=== PATIENT | male | born 1970 | race Caucasian/White ===

== ENCOUNTER 2017-08-12 12:16 | Emergency (ER) | payer BC ==
[2017-08-12 12:55] VITALS: BP 121/67
--- NOTE | 2017-08-12 13:07 | UC ---
Hand/Wrist HPI - HPI Summary HPI Summary: 46 yo male slipped and fell on ice this AM c/o right wrist pain and swelling he is right handed - History Of Current Complaint Chief Complaint: UCUpperExtremity Stated Complaint: WRIST Time Seen by Provider: 08/12/17 12:56 Hx Obtained From: Patient Onset/Duration: Sudden Onset Severity Initially: Severe Severity Currently: Moderate Pain Intensity: 5 - declines analgic at present Pain Scale Used: 0-10 Numeric Character Of Pain: Sharp, Aching Aggravating Factor(s): Movement Alleviating Factor(s): Rest, Ice Associated Signs And Symptoms: Positive: Swelling, Numbness/Tingling - initially had numbness and tingling thumb index and middle finger-lasted 20 minutes Related History: Dominant Hand Right - Allergies/Home Medications Allergies/Adverse Reactions: Allergies Allergy/AdvReac Type Severity Reaction Status Date / Time Aspirin Allergy See Comment Verified 08/12/17 12:55 Home Medications: Home Medications NK [No Home Medications Reported] 08/12/17 [History Confirmed 08/12/17] PMH/Surg Hx/FS Hx/Imm Hx Previously Healthy: Yes - Surgical History Surgical History: Yes Surgery Procedure, Year, and Place: APPENDIX-1972 - Family History Known Family History: Negative: Cardiac Disease, Hypertension, Diabetes - Social History Alcohol Use: Occasionally Substance Use Type: None Smoking Status (MU): Never Smoked Tobacco - Immunization History Most Recent Influenza Vaccination: NOT UTD Review of Systems Constitutional: Negative Skin: Negative Eyes: Negative ENT: Negative Respiratory: Negative Cardiovascular: Negative Gastrointestinal: Negative Genitourinary: Negative Motor: Negative Neurovascular: Negative Musculoskeletal: Arthralgia Neurological: Negative Psychological: Negative Is Patient Immunocompromised?: No All Other Systems Reviewed And Are Negative: Yes Physical Exam Triage Information Reviewed: Yes Appearance: Well-Appearing, No Pain Distress, Well-Nourished Vital Signs: Initial Vital Signs Temp 97.6 F 08/12/17 12:52 Pulse 67 08/12/17 12:52 Resp 14 08/12/17 12:52 BP 121/67 08/12/17 12:52 Pulse Ox 98 08/12/17 12:52 Eyes: Positive: Conjunctiva Clear ENT: Positive: Hearing grossly normal. Negative: Nasal congestion, Nasal drainage, Trismus, Muffled voice, Hoarse voice Neck: Positive: Supple Respiratory: Positive: Lungs clear, Normal breath sounds, No respiratory distress, No accessory muscle use Cardiovascular: Positive: RRR, No Murmur Musculoskeletal: Positive: Edema @ - tender and swollen over distal radius/ snuff box tenderness/limited ROM, good cap refill, ulna not tender RIGHT WRIST Psychological Exam: Normal Skin Exam: Normal Diagnostics - Radiology No standard instances Xray Interpretation: No Acute Changes Radiology Interpretation Completed By: Radiologist Hand/Wrist Course/Dx - Differential Dx/Diagnosis Provider Diagnoses: right wrist injury. high index of suspicion for a navicular fracture Discharge - Discharge Plan Condition: Stable Disposition: HOME Patient Education Materials: Scaphoid Fracture (ED) Referrals: Rogelio Ackerman MD [Medical Doctor] - As Soon As Possible Additional Instructions: no fracture was noted but I have a high index of suspicion that you have an occult scaphoid fracture this needs to be followed up to help avoid complications of non union / of part of the bone thumb spica splint tylenol or advil for pain
--- NOTE | 2017-08-12 14:20 | RAD ---
INDICATION: Right wrist pain after a fall COMPARISON: None. TECHNIQUE: 3 views right wrist. REPORT: The visualized bones are properly aligned and well corticated. The joint spaces are normal.There is no fracture, dislocation or other focal osseous abnormality. Incidentally noted is a linear hyperdense structure measuring 5 mm in length overlying the superficial soft tissues distal to the thenar eminence.. IMPRESSION: 1. No radiographically apparent fracture or dislocation involving the right wrist. 2. Subcutaneous foreign body overlying the thenar eminence. Please correlate to physical examination and/or surgical history. If the patient's symptoms persist, follow-up imaging is recommended.
== END 2017-08-12 14:32 | disposition home or self-care (01) ==
LOC: UCEAST 12:16
DX: S69.91XA Unspecified injury of right wrist, hand and finger(s), initial encounter (principal); S60.851A Superficial foreign body of right wrist, initial encounter; W00.0XXA Fall on same level due to ice and snow, initial encounter; Y92.9 Unspecified place or not applicable; Z88.6 Allergy status to analgesic agent
CPT/HCPCS: 99212; G0463

== ENCOUNTER 2018-05-02 09:45 | Emergency (ER) | payer BC ==
[2018-05-02 10:16] VITALS: BP 130/84
--- NOTE | 2018-05-02 10:49 | RAD ---
Indication: Stepped on foreign body with LEFT great toe 2 months ago. Swelling lateral dorsal aspect. Comparison: No relevant prior exams available on the [facility] for comparison. Technique: AP, lateral, and oblique views LEFT great toe. Report: Fusiform soft tissue swelling. No subcutaneous emphysema or conspicuous foreign body. Negative for fracture or malalignment. Negative for periosteal reaction, osteolysis, or osteosclerosis. IMPRESSION: #. No foreign body evident. #. Nonspecific soft tissue swelling.
--- NOTE | 2018-05-02 11:01 | UC ---
Skin Complaint HPI - HPI Summary HPI Summary: PATIENT CONCERNED HE HAS A THORN STUCK IN HIS LEFT GREAT TOE. HAS HAD PAIN FOR ABOUT 2 MONTHS. CANNOT WALK BAREFOOT DUE TO THE DISCOMFORT. NO REDNESS OR DRAINAGE OR FEVER. - History of Current Complaint Chief Complaint: UCLowerExtremity Time Seen by Provider: 05/02/18 10:11 Stated Complaint: PUNCTURE WOUND Hx Obtained From: Patient Onset/Duration: Gradual Onset, Lasting Weeks, Still Present Timing: Constant Onset Severity: Moderate Current Severity: Moderate Pain Intensity: 1 Pain Scale Used: 0-10 Numeric Location: Discrete - LEFT GREAT TOE Character: Pain, Raised Aggravating Factor(s): Touch Associated Signs & Symptoms: Positive: Tenderness - Allergy/Home Medications Allergies/Adverse Reactions: Allergies Allergy/AdvReac Type Severity Reaction Status Date / Time aspirin Allergy Unknown Verified 05/02/18 10:11 Reaction Details Review of Systems Constitutional: Negative Skin: Other - TENDER BUMP LEFT GREAT TOE Respiratory: Negative Cardiovascular: Negative Gastrointestinal: Negative All Other Systems Reviewed And Are Negative: Yes PMH/Surg Hx/FS Hx/Imm Hx Previously Healthy: Yes - Surgical History Surgical History: Yes Surgery Procedure, Year, and Place: APPENDIX-1972. R arm -repair of detached bicep -2018 - Family History Known Family History: Negative: Cardiac Disease, Hypertension, Diabetes - Social History Alcohol Use: None Substance Use Type: None Smoking Status (MU): Never Smoked Tobacco - Immunization History Most Recent Influenza Vaccination: NOT UTD Physical Exam Triage Information Reviewed: Yes Appearance: Well-Appearing, No Pain Distress, Well-Nourished Vital Signs: Initial Vital Signs Temp 98.2 F 05/02/18 10:12 Pulse 64 05/02/18 10:12 Resp 16 05/02/18 10:12 BP 130/84 05/02/18 10:12 Pulse Ox 96 05/02/18 10:12 Vital Signs Reviewed: Yes Eyes: Positive: Conjunctiva Clear ENT: Positive: Hearing grossly normal Neck: Positive: Supple Respiratory: Positive: No respiratory distress, No accessory muscle use Cardiovascular: Positive: Pulses Normal Abdomen Description: Positive: Soft Musculoskeletal: Positive: No Edema Neurological: Positive: Alert Psychological: Positive: Age Appropriate Behavior Skin: Positive: Other - CORN PLANTAR SURFACE LEFT GRET TOE. TTP. Negative: rashes Diagnostics - Radiology LEFT GREAT TOE XRAY Xray Interpretation: No Acute Changes Radiology Interpretation Completed By: Radiologist Course/Dx - Diagnoses Provider Diagnoses: CORN - LEFT GREAT TOE Discharge - Sign-Out/Discharge Documenting (check all that apply): Patient Departure All imaging exams completed and their final reports reviewed: Yes - Discharge Plan Condition: Stable Disposition: HOME Referrals: Mouna Scott MD [Primary Care Provider] - Additional Instructions: YOUR XRAY IS UNREMARKABLE. THE LESION APPEARS TO BE A CORN. FOLLOW-UP WITH A ZIPPER JOINER FOR FURTHER TREATMENT. PODIATRY IN [facility] Dr. Beka Ag [address] Boom Alves. [address] [place] [address] Please call his office at [phone] to make an appointment to be seen Dr. Tomy Lawrence. [address] [place] [address] Dr. Sara Newton [address] [place] [address] CORNS AND CALLUSES What are corns and calluses? Corns and calluses are areas of thick, hard skin , usually on the hands or feet. They can form when something rubs or presses on the skin over time. Corns usually affect the bottoms of the feet and sides of the toes. A corn looks like a small bump, and has a hard center surrounded by an area of irritated skin. Corns are often painful. Calluses often form on the hands, fingers, feet, or toes. They look like thick, rough, sometimes bumpy skin. Calluses usually do not hurt. What causes corns and calluses? Corns and calluses can result from: - Wearing shoes that are too tight or too loose - Wearing shoes without socks - Walking around barefoot - Using tools (like a hammer or rake) or sports equipment (like a tennis racket ) that can rub against the skin If you have other problems with your feet, you might be more likely to get corns or calluses. For example, if you have a bunion (a bony bump at the base of your big toe), your shoes can rub against it. This can cause a corn or callus. Is there a test for corns and calluses? No. There is no test. But your doctor or nurse can tell if you have a corn or callus by looking at your skin. If your doctor or nurse thinks that your corns or calluses are caused by problems with the bones in your feet, you might need an X-ray. Is there anything I can do on my own to get rid of corns and calluses? Yes. To help corns and calluses heal, and prevent new ones, you can: - Wear shoes and socks that fit properly. Tight shoes or shoes with high heels can cause corns and calluses. - Avoid going barefoot, or wearing shoes without socks. - Use special pads inside your shoes to prevent rubbing. Should I see a doctor or nurse? Maybe. If you think you have a corn or a callus and it is causing pain, see a doctor or nurse. He or she can check to see if you have a corn, callus, or something else (like a wart), and whether it needs treatment. How are corns and calluses treated? If you have a corn or callus that causes pain or wont heal on its own, your doctor can treat it. Treatment usually involves removing the top layers of skin on the corn or callus, and then applying a patch that has medicine in it. The patch will soften the skin, so that more can be removed. After it has been in place for 2 to 3 days, the doctor can trim the skin again and replace the patch. This process can be repeated until the trouble spot is gone. If you would like to treat yourself, you can buy the patches with medicine in them without a prescription (sample brand names: Prabha Mediplast, Dr. Vargas's Callus Removers). Then your doctor can teach you how and when to change the patch yourself. But you should not use this treatment if you have diabetes or other conditions that can affect the nerves in the feet. If your corns or calluses are severe or keep coming back, your doctor might refer you to a foot doctor, called a convolute tube winder. A convolute tube winder can fit you with a special shoe insert (called an orthotic) to help protect and cushion your feet. Can corns and calluses be prevented? Sometimes. You are less likely to get corns or calluses if you avoid shoes that squeeze or rub against your feet or toes. You can also wear gloves to protect your hands when using tools that might rub on your skin (such as while gardening). - Billing Disposition and Condition Condition: STABLE Disposition: Home
== END 2018-05-02 11:05 | disposition home or self-care (01) ==
LOC: UCEAST 09:45
DX: L84 Corns and callosities (principal); Z88.6 Allergy status to analgesic agent
CPT/HCPCS: 99211; G0463

== ENCOUNTER 2018-07-23 12:58 | Emergency (ER) | payer BC ==
[2018-07-23 13:26] VITALS: BP 105/65
--- NOTE | 2018-07-23 13:37 | UC ---
Respiratory Complaint HPI - HPI Summary HPI Summary: 47 yo male presents with feeling hot/cold, productive cough with brown sputum, sinus pain/pressure/congestion for the last 3 days. He has not been taking anything OTC. He does not smoke. Denies sore throat, SOB, chest pain, rash. - History of Current Complaint Chief Complaint: UCRespiratory Stated Complaint: COUGH Time Seen by Provider: 07/23/18 13:36 Hx Obtained From: Patient Onset/Duration: Gradual Onset Severity Initially: Moderate Severity Currently: Moderate Pain Intensity: 6 Pain Scale Used: 0-10 Numeric Character: Cough: Productive - Allergies/Home Medications Allergies/Adverse Reactions: Allergies Allergy/AdvReac Type Severity Reaction Status Date / Time aspirin Allergy Unknown Verified 07/23/18 13:26 Reaction Details Home Medications: Home Medications Acetaminophen [Masophen] 1,000 mg PO Q6HR PRN 07/23/18 [History Confirmed ] PMH/Surg Hx/FS Hx/Imm Hx - Additional Past Medical History Additional PMH: None - Surgical History Surgical History: Yes Surgery Procedure, Year, and Place: APPENDIX-1972. R arm -repair of detached bicep -2017 - Family History Known Family History: Negative: Cardiac Disease, Hypertension, Diabetes - Social History Occupation: Employed Full-time Lives: With Family Alcohol Use: Occasionally Substance Use Type: None Smoking Status (MU): Never Smoked Tobacco - Immunization History Most Recent Influenza Vaccination: NOT UTD Review of Systems All Other Systems Reviewed And Are Negative: Yes Constitutional: Positive: Fever Skin: Positive: Negative Eyes: Positive: Negative ENT: Positive: Nasal Discharge, Sinus Congestion, Sinus Pain/Tenderness Respiratory: Positive: Cough Cardiovascular: Positive: Negative Gastrointestinal: Positive: Negative Neurovascular: Positive: Negative Neurological: Positive: Negative Psychological: Positive: Negative Physical Exam - Summary Physical Exam Summary: GENERAL: NAD. WDWN. No pain distress. SKIN: No rashes, sores, lesions, or open wounds. HEENT: Head: AT/NC Eyes: EOM intact. Conjunctiva clear without inflammation or discharge. Ears: Hearing grossly normal. TMs intact, no bulging, erythema, or edema. Nose: Nasal mucosa mildly swollen and erythematous with yellow discharge. TTP maxillary and frontal sinus. Positive post nasal drip Throat: Posterior oropharynx without exudates, erythema, or tonsillar enlargement. Uvula midline. NECK: Supple. Nontender. No lymphadenopathy. CHEST: Mild wheezing right lung with scant crackles heard RML. No accessory muscle use. Breathing comfortably and in no distress. CV: RRR. Without m/r/g. Pulses intact. NEURO: Alert. PSYCH: Age appropriate behavior. Triage Information Reviewed: Yes Vital Signs: Initial Vital Signs Temp 98 F 07/23/18 13:22 Pulse 87 07/23/18 13:22 Resp 20 07/23/18 13:22 BP 105/65 07/23/18 13:22 Pulse Ox 96 07/23/18 13:22 Vital Signs Reviewed: Yes Diagnostic Evaluation - Laboratory O2 Sat by Pulse Oximetry: 96 Respiratory Course/Dx - Course Course Of Treatment: CXR: IMPRESSION: FINDINGS SUGGESTIVE OF COPD, NO EVIDENCE FOR ACUTE FINDING. Duoneb: mild improvement. States easier to take a deep breath and less tightness in his chest. Suspect sinusitis with URI. Rx for zpak. - Differential Dx/Diagnosis Provider Diagnosis: URI (upper respiratory infection) Discharge - Sign-Out/Discharge Documenting (check all that apply): Patient Departure All imaging exams completed and their final reports reviewed: Yes - Discharge Plan Condition: Stable Disposition: HOME Prescriptions: Azithromycin TAB* [Zithromax TAB (Z-NADIA) 250 mg #6 tabs] 2 tab PO .TODAY, THEN 1 DAILY #1 nadia Patient Education Materials: Sinusitis (ED) Referrals: Mouna Scott MD [Primary Care Provider] - Additional Instructions: If you develop a fever, shortness of breath, chest pain, new or worsening symptoms - please call your PCP or go to the ED. - Billing Disposition and Condition Condition: STABLE Disposition: Home
[2018-07-23] MEDS ORDERED: Albuterol/Ipratropium NEB.SOL* Albuterol 2.5 MG/Ipratropium 0.5 MG 3 ML INH ONE (13:46)
== END 2018-07-23 14:37 | disposition home or self-care (01) ==
LOC: UCEAST 12:58
DX: J06.9 Acute upper respiratory infection, unspecified (principal); Z88.8 Allergy status to other drugs, medicaments and biological substances
CPT/HCPCS: 71046; 99212; A9270-GY; G0463

== ENCOUNTER 2019-06-10 09:23 | Emergency (ER) | payer BC ==
[2019-06-10 09:29] VITALS: BP 116/76
--- NOTE | 2019-06-10 09:45 | UC ---
Respiratory Complaint HPI - HPI Summary HPI Summary: 48-year-old male who has had upper respiratory illness over the past week with head congestion and postnasal drainage however today he states that is improved but he does have a productive cough of greenish sputum. He has a history of asthma as well. He is a nonsmoker. - History of Current Complaint Chief Complaint: UCGeneralIllness Stated Complaint: EARS, THROAT, AND LUNGS Time Seen by Provider: 06/10/19 09:29 Hx Obtained From: Patient Onset/Duration: Gradual Onset Severity Initially: Mild Severity Currently: Mild Pain Intensity: 4 Character: Cough: Productive - Productive cough of green sputum. Alleviating Factors: Bronchodilator - Patient has been using his inhaler intermittently. Associated Signs And Symptoms: Positive: URI, Nasal Congestion - Nasal congestion and head congestion have improved. - Allergies/Home Medications Allergies/Adverse Reactions: Allergies Allergy/AdvReac Type Severity Reaction Status Date / Time aspirin Allergy Unknown Verified 06/10/19 09:29 Reaction Details PMH/Surg Hx/FS Hx/Imm Hx Previously Healthy: Yes Respiratory History: Asthma - Surgical History Surgical History: Yes Surgery Procedure, Year, and Place: APPENDIX-1972. R arm -repair of detached bicep -2018 - Family History Known Family History: Negative: Cardiac Disease, Hypertension, Diabetes - Social History Alcohol Use: Occasionally Substance Use Type: None Smoking Status (MU): Never Smoked Tobacco - Immunization History Most Recent Influenza Vaccination: NOT UTD Review of Systems All Other Systems Reviewed And Are Negative: Yes ENT: Positive: Nasal Discharge, Sinus Congestion Respiratory: Positive: Cough - Productive cough of green sputum. Is Patient Immunocompromised?: No Physical Exam Triage Information Reviewed: Yes Appearance: Well-Appearing, No Pain Distress, Well-Nourished Vital Signs: Initial Vital Signs Temp 98 F 06/10/19 09:26 Pulse 66 06/10/19 09:26 Resp 16 06/10/19 09:26 BP 116/76 06/10/19 09:26 Pulse Ox 100 06/10/19 09:26 Vital Signs Reviewed: Yes Eyes: Positive: Conjunctiva Clear ENT: Positive: Hearing grossly normal, Pharynx normal, TMs normal, Uvula midline Neck: Positive: Supple, Nontender, No Lymphadenopathy Respiratory: Positive: No respiratory distress, No accessory muscle use, Wheezing - Patient has 1 expiratory wheeze posteriorly with forced expiration. Good Air movement throughout all lung mckeon. Cardiovascular: Positive: RRR, No Murmur, Pulses Normal, Brisk Capillary Refill Musculoskeletal Exam: Normal Neurological Exam: Normal Psychological Exam: Normal Skin Exam: Normal Respiratory Course/Dx - Course Course Of Treatment: Patient is comfortable here. He preferred not to have a course of prednisone. I'm treating him with a Z-Nadia and then he is going to use his albuterol inhaler 2 puffs every 4-6 hours as needed for tight cough and wheeze. He is traveling to [place] in 2 days from now and I advised him to be seen in urgent care Center if he has any worsening symptoms. - Differential Dx/Diagnosis Provider Diagnosis: Bronchitis Discharge ED - Sign-Out/Discharge Documenting (check all that apply): Patient Departure All imaging exams completed and their final reports reviewed: No Studies - Discharge Plan Condition: Good Disposition: HOME Prescriptions: Azithromyxin NADIA (NF) [Z-Nadia (Zithromax) 250 mg tabs #6] 2 tab PO .TODAY, THEN 1 DAILY #6 tab Patient Education Materials: Acute Bronchitis (ED) Referrals: Mouna Scott MD [Primary Care Provider] - Additional Instructions: Increase fluids, use your albuterol inhaler 2 puffs every 4-6 hours as needed for wheezing or tight cough. Follow-up with your primary care provider or at an urgent care center if no improvement in 4 or 5 days. - Billing Disposition and Condition Condition: GOOD Disposition: Home
== END 2019-06-10 09:51 | disposition home or self-care (01) ==
LOC: UCEAST 09:23
DX: J45.909 Unspecified asthma, uncomplicated (principal); Z88.8 Allergy status to other drugs, medicaments and biological substances
CPT/HCPCS: 99212; G0463